=== PATIENT | female | born 1990 | race Caucasian/White ===

== ENCOUNTER → 2024-01-30 | Outpatient (CLI) | payer OTHER, SELFPAY ==
[2024-02-03 13:08] LABS: HPV APTIMA, High Risk Negative (Negative)
== END | disposition home or self-care (01) ==
PROVIDERS: PCP Family Medicine; Referring Provider Obstetrics & Gynecology; Visit Provider Obstetrics & Gynecology
DX: Z12.4 Encounter for screening for malignant neoplasm of cervix (principal)
CPT/HCPCS: 87624; 88175; G0145

== ENCOUNTER → 2025-05-17 | Outpatient (CLI) | payer OTHER, SELFPAY ==
--- OUTSIDE RECORDS SUMMARY | 2025-05-17 12:23 | XMS RPT_ITS | CCD ---
Author Organization [facility] Care Team Providers Care Slp Name Role Phone MATIASRAKESH KEYES Attending Unavailable ABIMBOLA HOUSE Primary Care Unavailable Harsh LUIS, Abimbola Aly Primary Care Provider Abimbola House MD Primary Care Provider Hollie Priest DO Primary Care Provider Abimbola House MD Primary Care Provider HOLLIE PRIEST Attending Unavailable HOLLIE PRIEST Primary Care Unavailable Harsh LUIS, Dr. Daily Primary Care Provider Dr. Abimbola House MD Referring Provider Dr. Annalisa Muhammad DO Attending Provider Annalisa Muhammad Attending UnavailAbimbola Sue Referring Unavailable Abimbola House Primary Care Unavailable Allergies Allergy Classification Reported Allergen(s) Allergy Type Date of Onset Reaction(s) Facility (4 sources) Amoxicillin-Pot Clavulanate Drug Allergy 02-26-2013 [facility] (1 source) Amoxicillin Drug Allergy 02-01-2025 unknown [facility] (1 source) Clavulanate Drug Allergy 02-01-2025 unknown [facility] (1 source) Amoxicillin Drug Allergy 02-01-2025 [facility] Repository (1 source) Clavulanate Drug Allergy 02-01-2025 [facility] Repository Medications Current Medications Medication Drug Class(es) Dates Sig (Normalized) Sig (Original) docosahexaenoic acid 200 mg oral capsule (1 source) Start: 02-01-2025 Docosahexaenoic Acid ( Dha) 200 mg capsule Active mg PO February 01, 2025 12:00am valACYclovir 1000 mg oral tablet (7 sources) Herpesvirus Nucleoside Analog DNA Polymerase Inhibitor, Herpes Simplex Virus Nucleoside Analog DNA Polymerase Inhibitor, Herpes Zoster Virus Nucleoside Analog DNA Polymerase Inhibitor Start: 01-30-2024 Valacyclovir 1 gram tablet Active 1000 mg PO DAILY as needed January 30, 2024 12:00am Start: 01-17-2024 End: 01-23-2025 valACYclovir (Valtrex) 1 g t ablet Indications: HSV-1 (herpes simplex virus 1) infection Take 1 tablet (1,000 mg) by mouth 2 times daily. 180 tablet 3 01/23/2025 Active Start: 12-05-2023 End: 01-17-2024 valACYclovir (Valtrex) 1 g t ablet Take 1,000 mg by mouth as needed. 12/05/2023 01/17/2024 Discontinued (Reorder) Start: 01-13-2023 End: 01-23-2023 valACYclovir (Valtrex) 1 g t ablet Indications: HSV-1 (herpes simplex virus 1) infection Take 0.5 tablets (500 mg) by mouth in the morning and 0.5 tablets (500 mg) at noon and 0.5 tablets (500 mg) in the evening and 0.5 tablets (500 mg) before bedtime. Do all this for 10 days. 20 tablet 10 01/13/2023 01/23/2023 Active Start: 01-11-2022 End: 01-13-2023 valACYclovir (Valtrex) 1 g t ablet Take 500 mg by mouth. 0 01/11/2022 01/13/2023 Discontinued (Reorder) vitamin b6 100 mg oral tablet (1 source) Start: 02-01-2025 take 1 tablet by mouth once daily Pyridoxine (Vitamin B6) 100 mg tablet Active 100 mg PO daily February 01, 2025 12:00am Problems Active Problems Problem Classification Problem Date Documented Da te Episodic/Chronic Diabetes mellitus without complication (1 source) Hyperglycemia; Translations: [Impaired fasting glucose] 01-15-2025 Episodic Disorders of lipid metabolism (1 source) Hyperlipidemia; Translations: [Hyperlipidemia, unspecified] 01-15-2025 Chronic Immunizations and screening for infectious disease (2 sources) Viral screening status; Translations: [Encounter for screening for other viral diseases] 01-15-2025 Episodic Syncope (1 source) Vasovagal syncope; Translations: [Syncope and collapse] 01-30-2024 Episodic Viral infection (10 sources) Herpes simplex type 1 infection; Translations: [Herpesviral infection, unspecified] Onset: 04-28-2018 01-13-2023 Episodic Past or Other Problems Problem Classification Problem Date Documented Date Episodic/Chronic Abdominal hernia (4 sources) Hiatal hernia; Translations: [Diaphragmatic hernia without obstruction or gangrene] Onset: 08-09-2018 03-20-2022 Episodic Contraceptive and procreative management (4 sources) Oral contraception; Translations: [Encounter for surveillance of contraceptive pills] Onset: 01-11-2022 Resolved: 01-13-2023 01-13-2023 Episodic Results Test Name Value Interpretation Reference Range Facility Superintendent Police Office Visit Reporton 02-01-2025 Superintendent Police Office Visit Report [facility] [address], [address] [place] [address] OFFICE VISIT Date of Service: 02/01/25 MR#: [id number] Acct: [id number] Name: ARPITA ULLOA ANN Rep #: [id number] : 1990 Provider: Dr. 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 Is patient in pain?: No Allergies amoxicillin (From Augmentin) Allergy (Mild, Verified 02/01/25 15:37) unknown clavulanic acid (From Augmentin) Allergy (Mild, Verified 02/01/25 15:37) unknown Medications ???Medication ???Instructions ???Recorded ???Confirmed ???Type valacyclovir 1 gram tablet 1,000 mg PO DAILY PRN 01/30/24 History docosahexaenoic acid 200 mg mg PO 02/01/25 02/01/25 History capsule ( DHA) pyridoxine (vitamin B6) 100 mg 100 mg PO QDAY 02/01/25 02/01/25 H istory tablet Post menopausal: No Patient : No : No PFSH Medical History Cold sore Surgical History S/P wisdom tooth extraction Family History Grandmother Diabetes Aunt No problems noted. Father No problems noted. Social History (Updated 02/01/25 @ 15:46 by Karen Frazier) Smoking Status: Never smoker alcohol intake: current details: occasionally substance use type: does not use caffeine: Yes what type of physical activity do you participate in: walking frequency: daily duration: 30-45 minutes/day seatbelt use: always do you feel safe at home: Yes additional social history: -Diego History 0 Elective abortions Hx Para Spontaneous abortions Hx # Term Pregnancies Ectopic pregnancies Hx # Pregnancies Multiple births # of living children HPI Encounter for routine gynecological examination Details: ARPITA ULLOA is a 34 year old who presents for annual exam. wants to start trying to conceive. is already taking PNV. Last PAP: 01/30/24 History of abnormal PAP:no Last mammogram: n/a History of abnormal mammogram:no Colon cancer screening: n/a Other preventative health care screenings: followed by pcp Female Reproductive History Cycle Length: 21-35 Bleeding Duration: 7 Questions: metrorrhagia: No, sexually active: Yes, dyspareunia: No and PCB: No Menopausal Symptoms: No hot flashes, No night sweats, No weight change, No mood changes, No difficulty concentrating, No sleep problems and No change in libido ROS Const Constitutional: Reports as per HPI; Denies fatigue, increased appetite, poor appetite, night sweats, weight gain or weight loss Cardio Card: Denies chest pain Resp Resp: Denies cough or dyspnea GI GI: Reports as per HPI; Denies abdominal pain, bloating, constipation, nausea or vomiting : Reports as per HPI and other; Denies difficulty voiding, dysuria, hematuria, hot flashes, nipple discharge, pelvic pain, prolapse symptoms, urinary frequency, urinary incontinence, urinary urgency, vaginal discharge, vaginal dryness, vaginal odor or vaginal pruritus Skin Skin/Breast: Denies changing lesions, breast mass, breast pain, breast skin changes or nipple discharge Psych Psych: Denies anxiety, change in libido, depression or difficulty concentrating Exam Const General: cooperative, healthy appearing, comfortable, no acute distress, well developed and well groomed [facility] Head: normal to inspection and normocephalic Ears: hearing grossly normal bilaterally and external ears normal Nose: external nose normal Face and sinus: normal facial exam Neck Neck: normal visual inspection, full ROM and no lymphadenopathy Thyroid: thyroid normal Chest Chest palpation inspection: normal inspection of the chest Breast inspection: normal inspection of the breasts and normal inspection of the axillae Breast palpation: normal palpation of the breasts, normal palpation of the axillae and no axillary lymphadenopathy Resp Effort Inspection: normal respiratory effort GI Inspection: normal to inspection and non-distended Palpation: soft, no hepatosplenomegaly and no guarding General: bladder normal to palpation External Female Exam: normal external appearance, normal appearance of the urethra and no lesions Urethra: normal appearance of the urethra and normal palpation Speculum Exam - Vagina: normal appearance of the vagina and normal vaginal discharge Speculum Exam - Cervix: normal appearance of the cervix, no cervical discharge, no lesions and nontender [place] (more content not included)... Normal [facility] Office Visiton 01-23-2025 Follow-up visit [id number] Arpita Ulloa 1990 F Date Provider Department Center 01/23/2025 [id number] PRIEST [facility] Family History Problem Relation Age of Onset No Known Problems Paternal Grandmother Other Father Comments: Colon issues Asthma Father No Known Problems Maternal Grandmother No Known Problems Maternal Grandfather No Known Problems Brother Diabetes Mother Arthritis Mother No Known Problems Paternal Grandfather Family Status - Relation Status Age at Paternal Grandmother Alive Father Alive Maternal Grandmother Maternal Grandfather Brother Alive Mother Alive Paternal Grandfather Other Level of Service:03483 RI PERIODIC PREVENTIVE MED EST PATIENT 18-39 YRS Reason for Visit and Comments: New Patient [542] - New to provider Annual Exam [83] - Physical Normal [facility] Progress Noteon 01-23-2025 Progress Note Chronic. stable. Con tinue valtrex Orders: valACYclovir (Valtrex) 1 g tablet; Take 1 tablet (1,000 mg) by mouth 2 times daily. Normal [facility] Progress Note The patient, Arpita Lind aas is a 34 y.o. female identity was verified by name and date of . Injection of Tdap was administered per Nino Priest's Orders: Injection site: Left Deltoid The patient tolerated the injection well and without incident. The patient was discharged home with education. (After Visit Summary) Normal [facility] Progress Note [facility] [address] [facility] [id number] Visit Type: Physical PCP: Hollie Priest, Reason for Visit: New Patient (New to provider) and Annual Exam (Physical) ASSESSMENT AND PLAN Assessment & Plan Annual physical exam Reviewed labs - cbc, cmp, lipid, A1c - wnl. Advised updating her Tdap in preparation for having a child. 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 Continue valtrex Orders: valACYclovir (Valtrex) 1 g tablet; Take 1 tablet (1,000 mg) by mouth 2 times daily. Follow up in about 1 year (around 01/23/2026) for Annual. There are no Patient Instructions on file for this visit. SUBJECTIVE HPI Arpita Ulloa presents for an annual exam. 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 Pap last year (2023). Trying to conceive. Review of Systems Pertinent ROS noted in the HPI and all other systems are negative. Allergies[1] Current Medications[2] Medical History[3] Social History[4] Surgical History[5] Family History[6] OBJECTIVE BP 113/70 (BP Location: Right arm, Patient Position: Sitting, BP Cuff Size: Adult) Pulse 91 Temp 36.7 ?C (98 ?F) (Temporal) Ht 5' 6.5 (1.689 m) Wt 130 lb (59 kg) LMP 01/20/2025 (Exact Date) Comment: Regular SpO2 100% BMI 20.67 kg/m? Physical Exam Constitutional: General: She is not in acute distress. Appearance: Normal appearance. HENT: Head: Normocephalic and atraumatic. Right Ear: Tympanic membrane, ear canal and external ear normal. Left Ear: Tympanic membrane, ear canal and external ear normal. Mouth/Throat: Mouth: Mucous membranes are moist. Pharynx: Oropharynx is clear. No posterior oropharyngeal erythema. Eyes: General: No scleral icterus. Extraocular Movements: Extraocular movements intact. Conjunctiva/sclera: Conjunctivae normal. Pupils: Pupils are equal, round, and reactive to light. Neck: Thyroid: No thyroid mass or thyromegaly. Cardiovascular: Rate and Rhythm: Normal rate and regular rhythm. Heart sounds: No murmur heard. Pulmonary: Effort: Pulmonary effort is normal. No respiratory distress. Breath sounds: Normal breath sounds. No wheezing, rhonchi or rales. Abdominal: General: Abdomen is flat. Bowel sounds are normal. There is no distension. Palpations: Abdomen is soft. There is no hepatomegaly, splenomegaly or mass. Tenderness: There is no abdominal tenderness. There is no guarding. Musculoskeletal: Cervical back: Normal range of motion. No tenderness. Lymphadenopathy: Cervical: No cervical adenopathy. Neurological: Mental Status: She is alert. Psychiatric: Attention and Perception: Attention normal. Mood and Affect: Mood normal. Behavior: Behavior normal. Health Maintenance Health Maintenance Due Topic Date Due DTaP/Tdap/Td Vaccines (7 - Td or Tdap) 11/14/2019 COVID-19 Vaccine (2023- season) 2024 Immunization History Administered Date(s) Administered DTP 1990, 02/11/1993, 04/15/1993 DTaP, Unspecified 06/15/1994, 09/17/1997 HPV, Quadrivalent 01/23/2010, 04/14/2010, 03/12/2011 Hep A, ped/adol, 2 dose 11/13/2009, 06/02/2010 Hep B, Adolescent or Pediatric 11/27/1996, 02/26/1997, 09/17/1997 HiB, unspecified 1992, 02/11/1993, 04/15/1993, 06/15/1994 Influenza, seasonal, injectable 03/08/2014 MMR 06/15/1994, 09/17/1997 Meningococcal MCV4P 11/13/2009 Moderna SARS-CoV-2 Vaccination 08/27/2020, 09/24/2020, 06/16/2021 OPV 1990, 02/11/1993, 06/15/1994 Polio, Unspecified 09/17/1997 Tdap 11/13/2009 Varicella 09/17/1997, 11/13/2009 Medications Discontinued During This Encounter Medication Reason valACYclovir (Valtrex) 1 g tablet Reorder Hollie WinterDO brandi 01/23/2025 8:59 AM There are no Patient Instructions on file for this visit. [1] Allergies Allergen Reactions Amoxicillin-Pot Clavulanate Diarrhea [2] Current Outpatient Medications: valACYclovir (Valtrex) 1 g tablet, Take 1 tablet (1,000 mg) by mouth 2 times daily., Disp: 180 tablet, Rfl: 3 [3] History reviewed. No pertinent past medical history. [4] Social History Socioeconomic History Marital status: Tobacco Use Smoking status: Never Passive exposure: Never Smokeless tobacco: Never Vaping Use Vaping status: Never Used Substance and Sexual Activity Alcohol use: Yes Drug use: Never Sexual activity: Yes Partners: Male control/protection: Condom Male Comment: Previously on Apri Control. Ended July 2022 Social Drivers of Health Financial Resource Strain: Low Risk (01/23/2025) Overall Financial Resource Strain (CARDIA) Difficulty of Paying Living Expenses: Not hard at all Food Insecurity: No Food Insecurity (01/23/2025) Hunger Vital Sign Worried About Running Out of Food in the Last Year: Never true Ran Out of Food in the Last Year: [place] (more content not included)... Normal [facility] CBC panel Auto (Bld)on 01-17 Erythrocyte distribution width (RBC) [Ratio] 12.1 % 11.0 - 15.0 % [facility] Hematocrit (Bld) [Volume fraction] 41.6 % 35.0 - 45.0 % [facility] Hemoglobin (Bld) [Mass/Vol] 13.8 g/dL 11.7 - 15.5 g/dL [facility] MCH (RBC) [Entitic mass] 30.5 pg 27.0 - 33.0 pg [facility] MCHC (RBC) [Mass/Vol] 33.2 g/dL 32.0 - 36.0 g/dL [facility] Comment on above: For adults, a slight decrease in the calculated MCHC value (in the range of 30 to 32 g/dL) is most likely not clinically significant; however, it should be interpreted with caution in correlation with other red cell parameters and the patient's clinical condition. MCV (RBC) [Entitic vol] 92 fL 80.0 - 100.0 fL [facility] Platelet mean volume (Bld) [Entitic vol] 10.1 fL 7.5 - 12.5 fL [facility] Platelets (Bld) [#/Vol] 212 10*3/uL [facility] RBC (Bld) [#/Vol] 4.52 10*6/uL [facility] WBC (Bld) [#/Vol] 5.2 10*3/uL [facility] Comprehensive metabolic 1998 panelon 01-17-2025 Albumin [Mass/Vol] 4.6 g/dL 3.6 - 5.1 g/dL [facility] Albumin/Globulin [Mass ratio] 2 {ratio} [facility] ALP [Catalytic activity/Vol] 32 U/L 31 - 125 U/L [facility] ALT [Catalytic activity/Vol] 12 U/L 6 - 29 U/L [facility] AST [Catalytic activity/Vol] 13 U/L 10 - 30 U/L [facility] Bilirubin [Mass/Vol] 0.8 mg/dL 0.2 - 1.2 mg/dL [facility] Calcium [Mass/Vol] 9.1 mg/dL 8.6 - 10. 2 mg/dL [facility] Chloride [Moles/Vol] 105 mmol/L 98 - 110 mmol/L [facility] CO2 [Moles/Vol] 26 mmol/L 20 - 32 mmol/L [facility] Creatinine [Mass/Vol] 0.69 mg/dL 0.50 - 0.97 mg/dL [facility] GFR/1.73 sq M.predicted among non-blacks MDRD (S/P/Bld) [Vol rate/Area] 118 mL/min/{1.73_m2} > OR = 60 mL/min/1.73m2 [facility] Globulin (S) [Mass/Vol] 2.3 g/dL [facility] Glucose [Mass/Vol] 94 mg/dL 65 - 99 mg/dL [facility] Comment on above: Fasting reference interval Potassium [Moles/Vol] 3.9 mmol/L 3.5 - 5.3 mmol/L [facility] Protein [Mass/Vol] 6.9 g/dL 6.1 - 8.1 g/dL [facility] Sodium [Moles/Vol] 138 mmol/L 135 - 146 mmol/L [facility] Urea nitrogen [Mass/Vol] 11 mg/dL 7 - 25 mg/dL [facility] Urea nitrogen/Creatinin e [Mass ratio] SEE NOTE: [facility] Comment on above: Not Reported: BUN an d Creatinine are within reference range. HIV-1 and HIV-2 Antigen-Anti body Screenon 01-17-2025 HIV 1+2 Ab+HIV1 p24 Ag IA Ql [facility] Comment on above: HIV Negative HIV-1 antigen and HIV-1/HIV-2 antibodies were not detected. There is no laboratory evidence of HIV infection. HIV 1+2 Ab+HIV1 p24 Ag IA Ql Non-Reactive NON-REACTIVE [facility] Hemoglobin A1con 01-17-2025 HbA1c (Bld) [Mass fraction] 5.2 % NINF - 5.7 % [facility] Comment on above: For the purpose of s creening for the presence of diabetes: <5.7% Consistent with the absence of diabetes 5.7-6.4% Consistent with increased risk for diabetes (prediabetes) > or =6.5% Consistent with diabetes This assay result is consistent with a decreased risk of diabetes. Currently, no consensus exists regarding use of hemoglobin A1c for diagnosis of diabetes in children. According to [place] Diabetes Association (ADA) guidelines, hemoglobin A1c <7.0% represents optimal control in non- diabetic patients. Different metrics may apply to specific patient populations. Standards of Medical Care in Diabetes(ADA). Hepatitis C antibodyon 01-17 HCV Ab IA Ql Non-Reactive NON-REACTIVE [facility] Comment on above: HCV antibody was non-reactive. There is no laboratory evidence of HCV infection. In most cases, no further action is required. However, if recent HCV exposure is suspected, a test for HCV RNA (test code 22821) is suggested. For additional information please refer to http://education.[employer]/faq/QIY42x1 (This link is being provided for informational/ educational purposes only.) Lipid 1996 panelon 5 Cholesterol [Mass/Vol] 163 mg/dL NINF - 200 mg/dL [facility] Cholesterol in HDL [Mass/Vol] 58 mg/dL > OR = 50 [facility] Cholesterol in LDL [Mass/Vol] 90 mg/dL mg/dL (calc) [facility] Comment on above: Reference range: <10 0 Desirable range <100 mg/dL for primary prevention; <70 mg/dL for patients with CHD or diabetic patients with > or = 2 CHD risk factors. LDL-C is now calculated using the Ruth calculation, which is a validated novel method providing better accuracy than the Friedewald equation in the estimation of LDL-C. Rory CAMPOS et al. ELIUD. 2013;310(19): 5671-7005 (http://education.[employer]/faq/FSW582) Cholesterol non HDL [Mass/Vol] 105 mg/dL [facility] Comment on above: For patients with di abetes plus 1 major ASCVD risk factor, treating to a non-HDL-C goal of <100 mg/dL (LDL-C of <70 mg/dL) is considered a therapeutic option. Cholesterol.total/ Cholesterol in HDL [Mass ratio] 2.8 {ratio} [facility] Triglyceride [Mass/Vol] 67 mg/dL [facility] - 150 mg/dL [facility] No Panel Informationon 01-17 [facility] 36on 01-15-2025 36 [facility] Labs ordered. Normal [facility] 36 Name of caller: Gaby pearl Contact phone number: [phone] Relationship to Patient: patient Provider: Zayda Practice: [facility] Chief Complaint/Reason for Call: Patient wants to know if you can order her blood work so she can have it done prior to her physical and it can be discussed at the visit? Please advise Best time of day caller can be reached: any Patient advised that office/PCP has 24-48 business hours to return their call: No [employer] [facility] CNOVon 12-06-2017 CNOV Office Visit (WALKBR) ARPITA CURRY ([id number]) 1990 FDate Time Provider Department12/06/17 6:10 AM DANN CAMPUZANO (ALISSA) LEYLA During your visit today, we recorded the following information about you: Temperature Pulse Respiration Blood pressure 99.7 degrees 133/minute 16/minute 132/89 Weight Last Period 56.2 kg 12/03/17Ronanjaja Babs Saleem 12/06/2017 6:15 AM AddendumIf your symptoms continue or are worsening, please contact your Primary CareProvider for a follow up appointment.ASSESSMENT/GISSELLE N:1. Sore throat - ICD9: 462, ICD10: J02.9- suspect strep- Rapid Strep positive in the office today- The patient should follow up in 3-5 days if symptoms persist or worsen- RAPID STREP TEST B/O- AMOXICILLIN 875 MG TABLET - get a new toothbrush and start using It on Forest Campuzano APRN.CNP 12/06/2017 6:36 AM SignedSubjectiveHPIHPI Arpita Curry is a 27 year old female who presents today for CC of sorethroat This started 2 days ago, she is also having headache, body aches, hotand cold spells she has tried benadryl and advil, salt water gargles, andcider vinegarThere is no problem list on file for this patient.BP 132/89 Pulse (!) 133 Temp 37.6 ?C (99.7 ?F) (Tympanic) Resp 16 Wt 56.2 kg (124 lb) LMP 12/03/2017 (Exact Date) SpO2 97%ALLERGIESAllergen Reactions- Amoxicillin-Pot Cla* DiarrheaCurrent Outpatient Prescriptions:Desogestrel- Ethinyl Estradiol (APRI) 0.15-0.03 mg per tablet Take by mouth.Disp: Rfl:acyclovir (ZOVIRAX) 5 % ointment Apply topically every 3 hours. X 7d prn Disp:Rfl:calcium carbonate ([id number]-482) 500 mg calcium (1,250 mg) tablet Take 500 mgby mouth. Disp: Rfl:No current facility-administered medications for this visit.Review of SystemsConstitutional: Positive for chills. Negative for diaphoresis, fever andmalaise/fatigue.HENT: Positive for sore throat. Negative for congestion and ear pain.Respiratory: Negative for cough and wheezing.Gastrointestinal: Negative for abdominal pain, diarrhea, nausea and vomiting.Musculoskeletal: Positive for myalgias. Negative for joint pain.Skin: Negative for rash.Neurological: Positive for headaches. Negative for weakness.ObjectivePhysical ExamConstitutional: She is oriented to person, place, and time and well-developed,well-nouris hed, and in no distress.HENT:Head: Normocephalic and atraumatic.Right Ear: Tympanic membrane and ear canal normal.Left Ear: Tympanic membrane and ear canal normal.Nose: Nose normal. Right sinus exhibits no maxillary sinus tenderness and nofrontal sinus tenderness. Left sinus exhibits no maxillary sinus tenderness andno frontal sinus tenderness.Mouth/Throat: Uvula is midline and mucous membranes are normal. Normaldentition. Posterior oropharyngeal edema and posterior oropharyngeal erythemapresent. No oropharyngeal exudate or tonsillar abscesses.Eyes: Conjunctivae and EOM are normal. Pupils are equal, round, and reactive tolight.Neck: Normal range of motion. Neck supple.Cardiovascular: Normal rate, regular rhythm and normal heart sounds.Pulmonary/Chest: Effort normal and breath sounds normal. No respiratorydistress.Lympha denopathy: Head (right side): Tonsillar adenopathy present. No submental, nosubmandibular, no preauricular, no posterior auricular and no occipitaladenopathy present. Head (left side): Tonsillar adenopathy present. No submental, nosubmandibular, no preauricular, no posterior auricular and no occipitaladenopathy present. She has no cervical adenopathy.Neurological: She is alert and oriented to person, place, and time. Gaitnormal.Skin: Skin is warm and dry.Psychiatric: Affect normal.Nursing note and vitals reviewed.ASSESSMENT/PLAN:1 . Sore throat - ICD9: 462, ICD10: J02.9- suspect strep- Rapid Strep positive in the office today- The patient should follow up in 3-5 days if symptoms persist or worsen- RAPID STREP TEST B/O- AMOXICILLIN 875 MG TABLET - get a new toothbrush and start using It on Dann Campuzano APRN.CNPReferring Provider: SELF [200]Allergies As of Date: 12/06/2017 Noted Allergy ReactionAMOXICILLIN-POT CLAVULANATE 02/26/2013 6 - DiarrheaDate Reviewed: 12/06/2017Reviewed by: Dann Bertrand (Alissa) Tatianna - Fully AssessedReason for Visit: Sore Throat [200] Cmt: x 2 DAYSReason For Visit History RecordedPrimary Visit Diagnosis:Sore throat [J02.9]Order(s):RAPID STREP TEST B/O [[id number]] Order #: [id number] amoxicillin (AMOXIL) 875 mg tabletTake 1 tablet by mouth every 12 hours for 10 days.Disp: 20 tabletRfl: 0Prescriptions as of 12/06/2017 Sig: DESOGESTREL 0.15 MG-ETHINYL E* Take by mouth. ACYCLOVIR 5 % TOPICAL OINTMENT Apply topically every 3 hours* CALCIUM CARBONATE 500 MG CALC* Take 500 mg by mouth. AMOXICILLIN 875 MG TABLET Take 1 tablet by mouth every *Medication notes this encounter ACYCLOVIR 5 % TOPICAL OINTMENT >> Jyothi Brice Ma 12/06/2017 6:17 AM >> JYOTHI BRICE MA Dec 06, 2017 6:17 AM prnProblem List As Of Date: 12/06/2017(None) Other instructions from your clinician: If your symptoms continue or are worsening, please contact your Primary Care Provider for a follow up appointment. ASSESSMENT/PLAN: 1. Sore throat - ICD9: 462, ICD10: J02.9 - suspect strep - Rapid Strep positive in the office today - The patient should follow up in 3-5 days if symptoms persist or worsen - RAPID STREP TEST B/O - AMOXICILLIN 875 MG TABLET - get a new toothbrush and start using It on Thank youPrescriptions ordered this encounter Disp Refills Start End AMOXICILLIN 875 MG TABLET 20 t* 0 12/06/2017 12/16/2017 Route: ORAL Sig: Take 1 tablet by mouth every 12 hours for 10 days.Letter Alka Campuzano APRN.CNP Walk In [address] [address]Wmab: [phone] Jarai[address] [facility] [address]Ht Whom it May Concern:This is to certify that Arpita Curry was seen at our office for medicalcare. Arpita may return to work on 12/08/17.If you have any questions please feel free to call.Sincerely:Dann Campuzano APRN.CNPEncounter Number: [id number] Status:Closed by DANN CAMPUZANO on 12/06/17 Normal [facility] PROGRESSon 12-06-2017 PROGRESS HNO ID: [id number] thor: Dann Bertrand (Radiology Scheduler) TatiannaService: (none)Author Type: Nurse PractitionerType: Progress NotesFiled: 12/06/2017 6:36 AMNote Text:SubjectiveHPIHPI Arpita Curry is a 27 year old female who presents today for CC ofsore throat This started 2 days ago, she is also having headache, bodyaches, hot and cold spells she has tried benadryl and advil, salt watergargles, and cider vinegarThere is no problem list on file for this patient.BP 132/89 Pulse (!) 133 Temp 37.6 ?C (99.7 ?F) (Tympanic) Resp 16 Wt 56.2 kg (124 lb) LMP 12/03/2017 (Exact Date) SpO2 97%ALLERGIESAllergen Reactions- Amoxicillin-Pot Cla* DiarrheaCurrent Outpatient Prescriptions:Desogestrel- Ethinyl Estradiol (APRI) 0.15-0.03 mg per tablet Take bymouth. Disp: Rfl:acyclovir (ZOVIRAX) 5 % ointment Apply topically every 3 hours. X 7d prnDisp: Rfl:calcium carbonate ([id number]) 500 mg calcium (1,250 mg) tablet Take 500mg by mouth. Disp: Rfl:No current facility-administered medications for this visit.Review of SystemsConstitutional: Positive for chills. Negative for diaphoresis, fever andmalaise/fatigue.HENT: Positive for sore throat. Negative for congestion and ear pain.Respiratory: Negative for cough and wheezing.Gastrointestinal: Negative for abdominal pain, diarrhea, nausea andvomiting.Musculoskeleta l: Positive for myalgias. Negative for joint pain.Skin: Negative for rash.Neurological: Positive for headaches. Negative for weakness.ObjectivePhysical ExamConstitutional: She is oriented to person, place, and time andwell-developed, well-nourished, and in no distress.HENT:Head: Normocephalic and atraumatic.Right Ear: Tympanic membrane and ear canal normal.Left Ear: Tympanic membrane and ear canal normal.Nose: Nose normal. Right sinus exhibits no maxillary sinus tenderness andno frontal sinus tenderness. Left sinus exhibits no maxillary sinustenderness and no frontal sinus tenderness.Mouth/Throat: Uvula is midline and mucous membranes are normal. Normaldentition. Posterior oropharyngeal edema and posterior oropharyngealerythema present. No oropharyngeal exudate or tonsillar abscesses.Eyes: Conjunctivae and EOM are normal. Pupils are equal, round, andreactive to light.Neck: Normal range of motion. Neck supple.Cardiovascular: Normal rate, regular rhythm and normal heart sounds.Pulmonary/Chest: Effort normal and breath sounds normal. No respiratorydistress.Lympha denopathy: Head (right side): Tonsillar adenopathy present. No submental, nosubmandibular, no preauricular, no posterior auricular and no occipitaladenopathy present. Head (left side): Tonsillar adenopathy present. No submental, nosubmandibular, no preauricular, no posterior auricular and no occipitaladenopathy present. She has no cervical adenopathy.Neurological: She is alert and oriented to person, place, and time. Gaitnormal.Skin: Skin is warm and dry.Psychiatric: Affect normal.Nursing note and vitals reviewed.ASSESSMENT/PLAN:1 . Sore throat - ICD9: 462, ICD10: J02.9- suspect strep- Rapid Strep positive in the office today- The patient should follow up in 3-5 days if symptoms persist or worsen- RAPID STREP TEST B/O- AMOXICILLIN 875 MG TABLET - get a new toothbrush and start using It on Dann Campuzano APRN.WELCOME HOSTESS Normal [facility] Vital Signs Date Time Vital Sign Value Performing Clinician Facility 02-01-2025 15:41-0400 Body height 165.[address] Abimbola House MD Work Phone: [facility] 02-01-2025 15:38-0400 Body mass index (BMI) [Ratio] 21.5 kg/m2 Dr. Abimbola House MD Work Phone: [facility] 02-01-2025 15:38-0400 Body weight 58.[address] Abimbola House MD Work Phone: [facility] 02-01-2025 15:38-0400 Diastolic blood pressure 89 mm[Hg] Dr. Abimbola House MD Work Phone: [facility] 02-01-2025 15:38-0400 Systolic blood pressure 131 mm[Hg] Dr. Abimbola House MD Work Phone: [facility] 01-23-2025 08:34-0400 Body temperature 98.01 [degF] Hollie Zayda DO Work Phone: [facility] 01-23-2025 08:34-0400 Diastolic blood pressure 70 mm[Hg] Hollie Zayda DO Work Phone: [facility] 01-23-2025 08:34-0400 Heart rate 91 /min Hollie Zayda DO Work Phone: [facility] 01-23-2025 08:34-0400 SaO2% (BldA) [Mass fraction] 100 % Hollie Zayda DO Work Phone: [facility] 01-23-2025 08:34-0400 Systolic blood pressure 113 mm[Hg] Hollie Zayda DO Work Phone: [facility] 01-23-2025 08:27-0400 Body height 168.9 cm Hollie Zayda DO Work Phone: [facility] 01-23-2025 08:27-0400 Body mass index (BMI) [Ratio] 20.67 kg/m2 Hollie Zayda DO Work Phone: [facility] 01-23-2025 08:27-0400 Body weight 58.97 kg Hollie Zayda DO Work Phone: [facility] 01-17-2024 07:41-0400 Body height 167.6 cm Abimbola House MD Work Phone: [facility] 01-17-2024 07:41-0400 Body mass index (BMI) [Ratio] 21.14 kg/m2 Abimbola House MD Work Phone: [facility] 01-17-2024 07:41-0400 Body weight 59.42 kg Abimbola House MD Work Phone: [facility] 01-17-2024 07:41-0400 Diastolic blood pressure 78 mm[Hg] Abimbola House MD Work Phone: [facility] 01-17-2024 07:41-0400 Heart rate 88 /min Abimbola House MD Work Phone: [facility] 01-17-2024 07:41-0400 SaO2% (BldA) [Mass fraction] 99 % Abimbola House MD Work Phone: [facility] 01-17-2024 07:41-0400 Systolic blood pressure 115 mm[Hg] Abimbola House MD Work Phone: [facility] 01-13-2023 07:36-0400 Body height 168.9 cm Abimbola House MD Work Phone: [facility] 01-13-2023 07:36-0400 Body mass index (BMI) [Ratio] 20.6 kg/m2 Abimbola House MD Work Phone: [facility] 01-13-2023 07:36-0400 Body temperature 98.4 [degF] Abimbola House MD Work Phone: [facility] 01-13-2023 07:36-0400 Body weight 58.79 kg Abimbola House MD Work Phone: [facility] 01-13-2023 07:36-0400 Diastolic blood pressure 77 mm[Hg] Abimbola House MD Work Phone: [facility] 01-13-2023 07:36-0400 Heart rate 77 /min Abimbola House MD Work Phone: [facility] 01-13-2023 07:36-0400 SaO2% (BldA) [Mass fraction] 99 % Abimbola House MD Work Phone: [facility] 01-13-2023 07:36-0400 Systolic blood pressure 111 mm[Hg] Abimbola House MD Work Phone: [facility] Encounters Encounter Date Encounter Type Care Provider Facility Start: 02-01-2025 Encounter for gynecological examination (general) (routine) without abnormal findings Annalisa [facility] Start: 02-01-2025 End: 02-01-[address] Annalisa Muhammad [facility] Work Phone: Start: 02-01-2025 End: 02-01-[address] Annalisa Muhammad DO [facility] Start: 02-01-2025 End: 02-01-[address] Abimbola House MD Work Phone: [facility] Start: 01-23-2025 End: 01-23-2025 Patient encounter procedure Hollie Priest DO Work Phone: [facility] Work Phone: Start: 01-23-2025 End: 01-23-2025 Periodic preventive med est patient 18-39 yrs Hollie Priest DO Work Phone: [facility] Comment on above: Annual physical exam (Primary Dx); HSV-1 (herpes simplex virus 1) infection Start: 01-23-2025 End: 01-23-2025 ambulatory HOLLIE PRIEST [facility] Start: 01-23-2025 End: 01-23-2025 Encounter for general adult medical examination without abnormal findings HOLLIE ZAYDA [facility] Start: 01-15-2025 End: 01-23-2025 Patient encounter procedure Hollie Priest DO Work Phone: [facility] Work Phone: Start: 01-15-2025 End: 01-23-2025 Telephone encounter Hollie Zayda DO Work Phone: [facility] Comment on above: Labs Only Start: 01-17-2024 End: 01-17-2024 Patient encounter status [facility]imb[facility] House [facility] Work Phone: Start: 01-17-2024 End: 01-17-2024 Periodic preventive med est patient 18-39 yrs Abimbola House MD Work Phone: [facility] Comment on above: Routine adult health maintenance (Primary Dx); HSV-1 (herpes simplex virus 1) infection Start: 01-13-2023 End: 01-13-2023 Patient encounter status Abimbola House MD [facility] Work Phone: Start: 01-13-2023 End: 01-13-2023 Periodic preventive med est patient 18-39 yrs Abimbola House MD Work Phone: [facility] Comment on above: Routine adult health maintenance (Primary Dx); HSV-1 (herpes simplex virus 1) infection Start: 10-02-2018 End: 10-03-2018 Patient encounter procedure RAKESH HASSAN Facility:[facility] Start: 09-04-2018 End: 09-05-2018 Patient encounter procedure RAKESH HASSAN Facility:[facility] Start: 12-06-2017 End: 12-08-2017 Ambulatory [facility] Procedures Date Procedure Procedure Detail Performing Clinician Start: 01-23-2025 Adult depression scr eening assessment Hollie Priest DO Work Phone: Start: 01-16-2025 Comprehensive metabo lic panel Hollie Priest DO Work Phone: Start: 01-16-2025 Lipid panel Hollie thomas DO Work Phone: Start: 01-30-2024 Microscopic observat ion [Identifier] in Cervix by Cyto stain Hollie Priest DO Work Phone: Start: 01-17-2024 Adult depression scr eening assessment Abimbola House MD Work Phone: Start: 01-13-2023 Adult depression scr eening assessment Abimbola House MD Work Phone: Start: 01-05-2021 Microscopic observat ion [Identifier] in Cervix by Cyto stain Abimbola House MD Work Phone: Plan of Treatment Date Care Activity Detail Author Start: 10-15-2067 RSV Immunization for Adults (1 - 1-dose 75+ series) RSV Immunization for Adults (1 - 1-dose 75+ series) [facility] Start: 2052 RSV Immunization age d 60 or older (1 - 1-dose 60+ series) RSV Immunization aged 60 or older (1 - 1-dose 60+ series) [facility] Start: 2042 Zoster Vaccines (1 of 2) Zoster Vacc jesenia (1 of 2) [facility] Start: 01-23-2035 DTaP/Tdap/Td Vaccine s (8 - Td or Tdap) DTaP/Tdap/Td Vaccines (8 - Td or Tdap) [facility] Start: 01-29-2027 Screening for malign ant neoplasm of cervix [facility] Start: 02-03-2026 End: 02-03-2026 Patient encounter procedure 02/03/2026 9:40 AM EDT Office Visit [facility] [address] [place] [address] Hollie Priest DO [address] [place] [address] [facility] Start: 01-23-2026 Depression Screening Depression Scre ening [facility] Start: 01-16-2026 Diabetes mellitus screening Diabetes Screening [facility] Start: 02-04-2025 Influenza vaccination Influenza Vacc ine (#1) [facility] Start: 01-23-2025 End: 01-23-2025 Patient encounter procedure 01/23/2025 8:20 AM EDT Office Visit [facility] [address] [place] [place] [id number] Hollie Priest DO [address] [place], [place] [id number] [facility] Start: 01-16-2025 Depression Screening Depression Scre ening [facility] Start: 02-05-2024 COVID-19 Vaccine ( season) COVID-19 Vaccine () [facility] Start: 02-05-2024 Influenza vaccination Influenza Vacc ine (#1) [facility] Start: 01-17-2024 End: 01-17-2024 Patient encounter procedure 01/17/2024 7:40 AM EDT Office Visit [facility] [address] [place] [place] [phone] Abimbola House MD [facility] [place] [address] [facility] Start: 01-14-2024 Depression Screening Depression Scre ening [facility] Start: 01-06-2024 Screening for malign ant neoplasm of cervix [facility] Start: 02-04-2023 COVID-19 Vaccine ( season) COVID-19 Vaccine () [facility] Start: 02-04-2023 Influenza vaccination Influenza Vacc ine (#1) [facility] Start: 2022 Screening for malign ant neoplasm of cervix HPV/Cotest [facility] Start: 08-11-2021 COVID-19 Vaccine (4 - Booster for Moderna series) COVID-19 Vaccine (4 - Booster for Moderna series) [facility] Start: 11-14-2019 DTaP/Tdap/Td Vaccine s (7 - Td or Tdap) DTaP/Tdap/Td Vaccines (7 - Td or Tdap) [facility] Start: 2010 Diabetes mellitus screening Diabetes Screening [facility] Start: 2010 Hepatitis C screening Hepatitis C Sc reening [facility] Start: 1992 HIV screening HIV Screening [place] alex Immunizations Immunization Date Immunization Notes Care Provider Ermias velasquez 01-23-2025 tetanus toxoid, redu blessing diphtheria toxoid, and acellular pertussis vaccine, adsorbed Hollie Priest DO Work Phone: [facility] 09-24-2020 Moderna SARS-CoV-2 Vaccination Abimbola House MD Work Phone: [facility] 08-27-2020 Moderna SARS-CoV-2 Vaccination Abimbola House MD Work Phone: [facility] 03-08-2014 influenza, seasonal, injectable Abimbola House MD Work Phone: [facility] 03-08-2014 influenza virus vacc ine, unspecified formulation Abimbola House MD Work Phone: [facility] 03-12-2011 human papilloma viru s vaccine, quadrivalent Abimbola House MD Work Phone: [facility] 06-02-2010 hepatitis A vaccine, pediatric/adolescent dosage, 2 dose schedule Abimbola House MD Work Phone: [facility] 04-14-2010 human papilloma viru s vaccine, quadrivalent Abimbola House MD Work Phone: [facility] 01-23-2010 human papilloma viru s vaccine, quadrivalent Abimbola House MD Work Phone: [facility] 11-13-2009 hepatitis A vaccine, pediatric/adolescent dosage, 2 dose schedule Abimbola House MD Work Phone: [facility] 11-13-2009 meningococcal polysaccharide (groups A, C, Y and W-135) diphtheria toxoid conjugate vaccine (MCV4P) Abimbola House MD Work Phone: [facility] 11-13-2009 tetanus toxoid, redu blessing diphtheria toxoid, and acellular pertussis vaccine, adsorbed Abimbola House MD Work Phone: [facility] 11-13-2009 varicella virus vaccine Rainer House MD Work Phone: [facility] 09-17-1997 diphtheria, tetanus toxoids and acellular pertussis vaccine, unspecified formulation Abimbola House MD Work Phone: [facility] 09-17-1997 hepatitis B vaccine, pediatric or pediatric/adolescent dosage Abimbola House MD Work Phone: [facility] 09-17-1997 measles, mumps and r ubella virus vaccine Abimbola House MD Work Phone: [facility] 09-17-1997 poliovirus vaccine, unspecified formulation Abimbola House MD Work Phone: [facility] 09-17-1997 varicella virus vaccine Rainer House MD Work Phone: [facility] 02-26-1997 hepatitis B vaccine, pediatric or pediatric/adolescent dosage Abimbola House MD Work Phone: [facility] 11-27-1996 hepatitis B vaccine, pediatric or pediatric/adolescent dosage Abimbola House MD Work Phone: [facility] 06-15-1994 diphtheria, tetanus toxoids and acellular pertussis vaccine, unspecified formulation Abimbola House MD Work Phone: [facility] 06-15-1994 haemophilus influenz ae type b vaccine, conjugate unspecified formulation Abimbola House MD Work Phone: [facility] 06-15-1994 measles, mumps and r ubella virus vaccine Abimbola House MD Work Phone: [facility] 06-15-1994 trivalent poliovirus vaccine, live, oral Abimbola House MD Work Phone: [facility] 04-15-1993 diphtheria, tetanus toxoids and pertussis vaccine Abimbola House MD Work Phone: [facility] 04-15-1993 haemophilus influenz ae type b vaccine, conjugate unspecified formulation Abimbola House MD Work Phone: [facility] 02-11-1993 diphtheria, tetanus toxoids and pertussis vaccine Abimbola House MD Work Phone: [facility] 02-11-1993 haemophilus influenz ae type b vaccine, conjugate unspecified formulation Abimbola House MD Work Phone: [facility] 02-11-1993 trivalent poliovirus vaccine, live, oral Abimbola House MD Work Phone: [facility] 1992 diphtheria, tetanus toxoids and pertussis vaccine Abimbola House MD Work Phone: [facility] 1992 haemophilus influenz ae type b vaccine, conjugate unspecified formulation Abimbola House MD Work Phone: [facility] 1992 trivalent poliovirus vaccine, live, oral Abimbola House MD Work Phone: [facility] Payers Date Payer Category Payer Commercial Managed C [facility] - [facility] [employer] [id number] 2022 Unknown [id number] 2008 Self-pay 2008 Unknown 2000 Unknown [id number] 1992 Unknown [id number] 1992 Unknown [id number] Unknown [id number] Social History Date Type Detail Facility Start: 01-13-2023 End: 02-01-2025 Tobacco smoking status NHIS Never smoked tobacco [facility] Start: 01-13-2023 Tobacco use and exposure Smoke less tobacco non-user [facility] Start: 01-13-2023 End: 01-17-2024 Alcohol intake Current drinker of alcohol (finding) [facility] Start: 01-13-2023 End: 01-23-2025 History of Social function [facility] Start: 01-13-2023 End: 01-23-2025 Humiliation, Afraid, Rape, and Kick questionnaire [HARK] [facility] Within the last year , have you been afraid of your partner or ex-partner? Patient refused [facility] Are you now , , , , never or living with a partner? [facility] How often to you hav e a drink containing alcohol? Monthly or less [facility] How many standard dr inks containing alcohol do you have on a typical day? 1 or 2 [facility] How often do you hav e 6 or more drinks on 1 occasion? Never [facility] How hard is it for y ou to pay for the very basics like food, housing, medical care, and heating Not very hard [facility] Do you feel stress - tense, restless, nervous, or anxious, or unable to sleep at night because your mind is troubled all the time - these days [OSQ] Only a little [facility] (I/We) worried wheth er (my/our) food would run out before (I/we) got money to buy more. Never true [facility] In the past 12 month s, was there a time when you were not able to pay the mortgage or rent on time? No [facility] Start: 1990 Sex Assigned At Female S [facility] Start: 03-22-2022 Gender identity Identifies as female gender (finding) [facility] Start: 03-22-2022 Sexual orientation Heterosexual (fin ding) [facility] Do you belong to any clubs or organizations such as yazdanism groups, unions, fraternal or athletic groups, or school groups? Yes [facility] Do you feel stress - tense, restless, nervous, or anxious, or unable to sleep at night because your mind is troubled all the time - these days [OSQ] Not at all [facility] Start: 01-04-2022 Sex Female (finding) [facility] NEGATED: Highlighted rowStart: NINF History of tobacco use Passive smoker [facility] Functional Status Date Assessment Result Facility 01-23-2025 Patient Health Questionnaire 2 item (PHQ- 2) [Reported] [facility] Clinical Notes 01-13-2023 to 02-01-2025 Note Date & Type Note Facility 02-01-2025 Progress note [facility] 02-01-2025 Progress note Note Date/Time February 01, 2025 4:13pm [facility]'s [address], [address] [place] [address] OFFICE VISIT Date of Service: 02/01/25 MR#: [id number] Acct: [id number] Name: ARPITA ULLOA Rep #: [id number] : 1990 Provider: Dr. 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 Is patient in pain?: No Allergies amoxicillin (From Augmentin) Allergy (Mild, Verified 02/01/25 15:37) unknown clavulanic acid (From Augmentin) Allergy (Mild, Verified 02/01/25 15:37) unknown Medications ?Medication ?Instructions ?Recorded ?Confirmed ?Type valacyclovir 1 gram tablet 1,000 mg PO DAILY PRN 01/2902/01/25 History docosahexaenoic acid 200 mg mg PO 02/01/25 02/01/25 Hi story capsule ( DHA) pyridoxine (vitamin B6) 100 mg 100 mg PO QDAY 02/01/25 02/01/25 History tablet Post menopausal: No Patient : No : No [facility] Medical History Cold sore Surgical History S/P wisdom tooth extraction Family History Grandmother Diabetes Aunt No problems noted. Father No problems noted. Social History (Updated 02/01/25 @ 15:46 by Karne Frazier) Smoking Status: Never smoker alcohol intake: current details: occasionally substance use type: does not use caffeine: Yes what type of physical activity do you participate in: walking frequency: daily duration: 30-45 minutes/day seatbelt use: always do you feel safe at home: Yes additional social history: -Diego History 0 Elective abortions Hx Para Spontaneous abortions Hx # Term Pregnancies Ectopic pregnancies Hx # Pregnancies Multiple births # of living children HPI Encounter for routine gynecological examination Details: ARPITA ULLOA is a 34 year old who presents for annual exam. wants to start trying to conceive. is already taking PNV. Last PAP: 01/30/24 History of abnormal PAP:no Last mammogram: n/a History of abnormal mammogram:no Colon cancer screening: n/a Other preventative health care screenings: followed by pcp Female Reproductive History Cycle Length: 21-35 Bleeding Duration: 7 Questions: metrorrhagia: No, sexually active: Yes, dyspareunia: No and PCB: No Menopausal Symptoms: No hot flashes, No night sweats, No weight change, No mood changes, No difficulty concentrating, No sleep problems and No change in libido ROS Const Constitutional: Reports as per HPI; Denies fatigue, increased appetite, poor appetite, night sweats, weight gain or weight loss Cardio Card: Denies chest pain Resp Resp: Denies cough or dyspnea GI GI: Reports as per HPI; Denies abdominal pain, bloating, constipation, nausea or vomiting : Reports as per HPI and other; Denies difficulty voiding, dysuria, hematuria, hot flashes, nipple discharge, pelvic pain, prolapse symptoms, urinary frequency, urinary incontinence, urinaryurgency, vaginal discharge, vaginal dryness, vaginal odor or vaginal pruritus Skin Skin/Breast: Denies changing lesions, breast mass, breast pain, breast skin changes or nipple discharge Psych Psych: Denies anxiety, change in libido, depression or difficulty concentrating Exam Const General: cooperative, healthy appearing, comfortable, no acute distress, well developed and well groomed [facility] Head: normal to inspection and normocephalic Ears: hearing grossly normal bilaterally and external ears normal Nose: external nose normal Face and sinus: normal facial exam Neck Neck: normal visual inspection, full ROM and no lymphadenopathy Thyroid: thyroid normal Chest Chest palpation & inspection: normal inspection of the chest Breast inspection: normal inspection of the breasts and normal inspection of theaxillae Breast palpation: normal palpation of the breasts, normal palpation of the axillae and no axillary lymphadenopathy Resp Effort & Inspection: normal respiratory effort GI Inspection: normal to inspection and non-distended Palpation: soft, no hepatosplenomegaly and no guarding General: bladder normal to palpation External Female Exam: normal external appearance, normal appearance of the urethra and no lesions Urethra: normal appearance of the urethra and normal palpation Speculum Exam - Vagina: normal appearance of the vagina and normal vaginal discharge Speculum Exam - Cervix: normal appearance of the cervix, no cervical discharge, no lesions and nontender Bimanual Exam- Vagina & Uterus: normal bimanual exam, uterine size normal, bladder normal to palpation, No tender, uterine mobility normal, consistency normal, non-tender and no cervical motion tenderness Bimanual Exam- Adnexa, other: normal adnexae, no masses and non-tender Skin General: no rashes or lesions noted Neuro General: patient alert, moves all extremities and no focal motor deficits Extrem General: normal to inspection and no pedal edema Psych Appearance: grossly normal Mental Status: mental status grossly normal Affect: normal affect Speech and Movement: speech and movement normal Attitude: cooperative Coding Level of Care Code Off vis,est,prev 18-39yrs Diagnoses Encounter for routine gynecological examination Z01.419 Assessment and Plan Assessment and Plan (1) Encounter for routine gynecological examination: Plan: Cervical cancer screening: pap up to date Breast cancer screening: start age 40 STD prevention and contraceptive options including their risks, benefits, and alternatives were reviewed with the patient and she chooses: none, wants to havea baby soon! Encouraged maintenance of a healthy weight and active lifestyle and handout given. Calcium/vitamin D recommendations provided. Annual exam handout including recommendations for good health guidelines and basic screening information given. Problem list up to date, see problem list details for any additional plan information. follow up in one year for annual health maintenance exam or sooner if needed. 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 Continue valtrex Orders: valACYclovir (Valtrex) 1 g tablet; Take 1 tablet (1,000 mg) by mouth 2 times daily. [id number] History of Present illness Narrative* Hollie Priest DO - 01/23/2025 8:20 AM EDT Images from the original note were not included. [facility] [address] [facility] [id number] Visit Type: Physical PCP: Hollie Priest DO Reason for Visit: New Patient (New to provider) and Annual Exam (Physical) ASSESSMENT AND PLAN Assessment & Plan Annual physical exam Reviewed labs - cbc, cmp, lipid, A1c - wnl. Advised updating her Tdap in preparation for having a child. 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 Continue valtrex Orders: valACYclovir (Valtrex) 1 g tablet; Take 1 tablet (1,000 mg) by mouth 2 times daily. Follow up in about 1 year (around 01/23/2026) for Annual. There are no Patient Instructions on file for this visit. SUBJECTIVE HPI Arpita Ulloa presents for an annual exam. 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 Pap last year (2023). Trying to conceive. Review of Systems Pertinent ROS noted in the HPI and all other systems are negative. Allergies[1] Current Medications[2] Medical History[3] Social History[4] Surgical History[5] Family History[6] OBJECTIVE BP 113/70 (BP Location: Right arm, Patient Position: Sitting, BP Cuff Size: Adult) Pulse 91 Temp 36.7 C (98 F) (Temporal) Ht 5' 6.5 (1.689 m) Wt 130 lb (59 kg) LMP 01/20/2025 (Exact Date) Comment: Regular SpO2 100% BMI 20.67 kg/m Physical Exam Constitutional: General: She is not in acute distress. Appearance: Normal appearance. HENT: Head: Normocephalic and atraumatic. Right Ear: Tympanic membrane, ear canal and external ear normal. Left Ear: Tympanic membrane, ear canal and external ear normal. Mouth/Throat: Mouth: Mucous membranes are moist. Pharynx: Oropharynx is clear. No posterior oropharyngeal erythema. Eyes: General: No scleral icterus. Extraocular Movements: Extraocular movements intact. Conjunctiva/sclera: Conjunctivae normal. Pupils: Pupils are equal, round, and reactive to light. Neck: Thyroid: No thyroid mass or thyromegaly. Cardiovascular: Rate and Rhythm: Normal rate and regular rhythm. Heart sounds: No murmur heard. Pulmonary: Effort: Pulmonary effort is normal. No respiratory distress. Breath sounds: Normal breath sounds. No wheezing, rhonchi or rales. Abdominal: General: Abdomen is flat. Bowel sounds are normal. There is no distension. Palpations: Abdomen is soft. There is no hepatomegaly, splenomegaly or mass. Tenderness: There is no abdominal tenderness. There is no guarding. Musculoskeletal: Cervical back: Normal range of motion. No tenderness. Lymphadenopathy: Cervical: No cervical adenopathy. Neurological: Mental Status: She is alert. Psychiatric: Attention and Perception: Attention normal. Mood and Affect: Mood normal. Behavior: Behavior normal. Health Maintenance Health Maintenance Due Topic Date Due DTaP/Tdap/Td Vaccines (7 - Td or Tdap) 11/14/2019 COVID-19 Vaccine ( season) 2024 Immunization History Administered Date(s) Administered DTP 1992, 02/11/1993, 04/15/1993 DTaP, Unspecified 06/15/1994, 09/17/1997 HPV, Quadrivalent 01/23/2010, 04/14/2010, 03/12/2011 Hep A, ped/adol, 2 dose 11/13/2009, 06/02/2010 Hep B, Adolescent or Pediatric 11/27/1996, 02/26/1997, 09/17/1997 HiB, unspecified 1992, 02/11/1993, 04/15/1993, 06/15/1994 Influenza, seasonal, injectable 03/08/2014 MMR 06/15/1994, 09/17/1997 Meningococcal MCV4P 11/13/2009 Moderna SARS-CoV-2 Vaccination 08/27/2020, 09/24/2020, 06/16/2021 OPV 1992, 02/11/1993, 06/15/1994 Polio, Unspecified 09/17/1997 Tdap 11/13/2009 Varicella 09/17/1997, 11/13/2009 Medications Discontinued During This Encounter Medication Reason valACYclovir (Valtrex) 1 g tablet Reorder Hollie Priest DO 01/23/2025 8:59 AM There are no Patient Instructions on file for this visit. [1] Allergies Allergen Reactions Amoxicillin-Pot Clavulanate Diarrhea [2] Current Outpatient Medications: valACYclovir (Valtrex) 1 g tablet, Take 1 tablet (1,000 mg) by mouth 2 times daily., Disp: 180 tablet, Rfl: 3 [3] History reviewed. No pertinent past medical history. [4] Social History Socioeconomic History Marital status: Tobacco Use Smoking status: Never Passive exposure: Never Smokeless tobacco: Never Vaping Use Vaping status: Never Used Substance and Sexual Activity Alcohol use: Yes Drug use: Never Sexual activity: Yes Partners: Male control/protection: Condom Male Comment: Previously on A[employer] Control. Ended July 2022 Social Drivers of Health Financial Resource Strain: Low Risk (01/23/2025) Overall Financial Resource Strain (CARDIA) Difficulty of Paying Living Expenses: Not hard at all Food Insecurity: No Food Insecurity (01/23/2025) Hunger Vital Sign Worried About Running Out of Food in the Last Year: Never true Ran Out of Food in the Last Year: Never true Transportation Needs: No Transportation Needs (01/23/2025) PRAPARE - Transportation Lack of Transportation (Medical): No Lack of Transportation (Non-Medical): No Physical Activity: Sufficiently Active (01/23/2025) Exercise Vital Sign Days of Exercise per Week: 7 days Minutes of Exercise per Session: 50 min Stress: No Stress Concern Present (01/23/2025) [employer] - Occupational Stress Questionnaire Feeling of Stress : Not at all Social Connections: Socially Integrated (01/23/2025) Social Connection and Isolation Panel [NHANES] Frequency of Communication with Friends and Family: More than three times a week Frequency of Social Gatherings with Friends and Family: More than three times a week Attends Jainism Services: 1 to 4 times per year Active Member of Clubs or Organizations: Yes Attends Club or Organization Meetings: More than 4 times per year Marital Status: Intimate Partner Violence: Patient Declined (01/23/2025) Humiliation, Afraid, Rape, and Kick questionnaire Fear of Current or Ex-Partner: Patient declined Emotionally Abused: Patient declined Physically Abused: Patient declined Sexually Abused: Patient declined Housing Stability: Low Risk (01/23/2025) Housing Stability Vital Sign Unable to Pay for Housing in the Last Year: No Number of Times Moved in the Last Year: 0 Homeless in the Last Year: No [5] History reviewed. No pertinent surgical history. [6] Family History Problem Relation Name Age of Onset No Known Problems Paternal Grandmother Other ([id number]) Father August Curry Colon issues Asthma Father August Curry No Known Problems Maternal Grandmother No Known Problems Maternal Grandfather No Known Problems Brother Diabetes Mother Gladys Curry Arthritis Mother Gladys Curry No Known Problems Paternal Grandfather * Vera Hernandez LPN - 01/23/2025 8:20 AM EDT The patient, Arpita Ulloa is a 34 y.o. female identity was verified by name and date of . Injection of Tdap was administered per Nino Priest's Orders: Injection site: Left Deltoid The patient tolerated the injection well and without incident. The patient was discharged home with education. 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 Continue valtrex Orders: valACYclovir (Valtrex) 1 g tablet; Take 1 tablet (1,000 mg) by mouth 2 times daily. documented in this [facility]08-12-2025 Telephone encounter Note* Telephone Encounter - Dede Salgado MA - 01/15/2025 10:54 AM EDT Patient notified [id number] Miscellaneous Notes* Telephone Encounter - Dede Salgado MA - 01/15/2025 10:54 AM EDT Patient notified * Telephone Encounter - Hollie Priest DO - 01/15/2025 9:18 AM EDT Labs ordered. * Telephone Encounter - Paola Barksdale - 01/15/2025 7:54 AM EDT Name of caller: Arpita Contact phone number: [phone] Relationship to Patient: patient Provider: Zayda Practice: [facility] Chief Complaint/Reason for Call: Patient wants to know if you can order her blood work so she can have it done prior to her physical and it can be discussed at the visit? Please advise Best time of day caller can be reached: any Patient advised that office/PCP has 24-48 business hours to return their call: No documented in this encounterSKettering [facility] [id number] Telephone encounter Note* Telephone Encounter - Hollie Priest DO - 01/15/2025 9:18 AM EDT Labs ordered. [id number] Telephone encounter Note* Telephone Encounter - Paola Barksdale - 01/15/2025 7:54 AM EDT Name of caller: Arpita Contact phone number: [phone] Relationship to Patient: patient Provider: Zayda Practice: [facility] Chief Complaint/Reason for Call: Patient wants to know if you can order her blood work so she can have it done prior to her physical and it can be discussed at the visit? 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 female who presents for Annual Exam (Patient here today for annual physical exam. Needs refill on medication.). Gets the herpes lesions around the menses. Catching it early helps. Regular menses. On no hormones.BP is good. Chart reviewed. Review of Systems Constitutional: Negative for activity change and appetite change. Respiratory: Negative for chest tightness, shortness of breath and wheezing. Cardiovascular: Negative for chest pain and leg swelling. Gastrointestinal: Negative for abdominal pain, blood in stool, constipation and diarrhea. Genitourinary: Negative for difficulty urinating. Neurological: Negative for dizziness and headaches. Psychiatric/Behavioral: Negative for sleep disturbance. Objective Physical Exam Vitals and nursing note reviewed. Constitutional: General: She is not in acute distress. Appearance: She is not ill-appearing or toxic-appearing. HENT: Right Ear: Tympanic membrane normal. Left Ear: Tympanic membrane normal. Nose: Nose normal. Mouth/Throat: Pharynx: No oropharyngeal exudate or posterior oropharyngeal erythema. Eyes: General: No scleral icterus. Conjunctiva/sclera: Conjunctivae normal. Pupils: Pupils are equal, round, and reactive to light. Neck: Vascular: No carotid bruit. Cardiovascular: Rate and Rhythm: Normal rate and regular rhythm. Heart sounds: Normal heart sounds. No murmur heard. Pulmonary: Effort: Pulmonary effort is normal. No respiratory distress. Breath sounds: Normal breath sounds. Abdominal: General: Bowel sounds are normal. There is no distension. Tenderness: There is no abdominal tenderness. There is no right CVA tenderness or left CVA tenderness. Musculoskeletal: Cervical back: Neck supple. Lymphadenopathy: Cervical: No cervical adenopathy. Skin: General: Skin is warm and dry. Capillary Refill: Capillary refill takes less than 2 seconds. Coloration: Skin is not jaundiced. Neurological: Mental Status: She is alert and oriented to person, place, and time. Cranial Nerves: No cranial nerve deficit. Psychiatric: Thought Content: Thought content normal. 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 female who presents for Annual Exam (No questions or concerns. Pt not fasting. Pap due next year). MGM had DM. No CAD or stroke. No smoking. Not on the BCP. Uses condoms. Not concerned about labs. Needs a refill on the valtrex for outbreaks. Chart reviewed Review of Systems Constitutional: Negative for activity change and appetite change. Walks dog every night Respiratory: Negative for chest tightness and shortness of breath. Cardiovascular: Negative for chest pain and leg swelling. Genitourinary: Negative for difficulty urinating and dysuria. Objective Physical Exam Vitals and nursing note reviewed. Constitutional: General: She is not in acute distress. Appearance: She is not ill-appearing or toxic-appearing. HENT: Right Ear: Tympanic membrane normal. Left Ear: Tympanic membrane normal. Nose: Nose normal. Mouth/Throat: Pharynx: No oropharyngeal exudate or posterior oropharyngeal erythema. Eyes: General: No scleral icterus. Conjunctiva/sclera: Conjunctivae normal. Pupils: Pupils are equal, round, and reactive to light. Neck: Vascular: No carotid bruit. Cardiovascular: Rate and Rhythm: Normal rate and regular rhythm. Heart sounds: Normal heart sounds. No murmur heard. Pulmonary: Effort: Pulmonary effort is normal. No respiratory distress. Breath sounds: Normal breath sounds. Abdominal: General: Bowel sounds are normal. There is no distension. Tenderness: There is no abdominal tenderness. There is no right CVA tenderness or left CVA tenderness. Musculoskeletal: Cervical back: Neck supple. Lymphadenopathy: Cervical: No cervical adenopathy. Skin: General: Skin is warm and dry. Capillary Refill: Capillary refill takes less than 2 seconds. Coloration: Skin is not jaundiced. Neurological: Mental Status: She is alert and oriented to person, place, and time. Cranial Nerves: No cranial nerve deficit. Psychiatric: Thought Content: Thought content normal. Assessment/Plan Problem List Items Addressed This Visit Infectious/Inflammatory HSV-1 (herpes simplex virus 1) infection Relevant Medications valACYclovir (Valtrex) 1 g tablet Other Visit Diagnoses Routine adult health maintenance - Primary Healthy, stable [facility]* Diagnosis Routine adult health maintenance- Primary HSV-1 (herpes simplex virus 1) infection Herpes simplex without mention of complication [facility]* Diagnosis Routine adult health maintenance- Primary HSV-1 (herpes simplex virus 1) infection Herpes simplex without mention of complication [facility]* Diagnosis Routine adult health maintenance- Primary HSV-1 (herpes simplex virus 1) infection Herpes simplex without mention of complication Annual physical exam- Primary Routine general medical examination at a health care facility HSV-1 (herpes simplex virus 1) infection Herpes simplex without mention of complication [facility]* Diagnosis Routine adult health maintenance- Primary HSV-1 (herpes simplex virus 1) infection Herpes simplex without mention of complication Annual physical exam- Primary Routine general medical examination at a health care facility Hyperlipidemia, unspecified hyperlipidemia type Need for hepatitis C screening test Special screening examination for other specified viral diseases Encounter for screening for HIV Elevated fasting glucose Impaired fasting glucose Annual physical exam- Primary Routine general medical examination at a health care facility HSV-1 (herpes simplex virus 1) infection Herpes simplex without mention of complication documented in this encounter [facility]* Diagnosis Onset Date Resolution Status Admit Date Encounter for routine gynecological examination noneactive February 01, 2025 3:28pm [facility] Work Phone: Reason for referral (narrative)No reason for referral information availablePom[facility] Work Phone: Summary Purpose Family History No Family History Records Found Relationship Condition Age at Onset Recorded Date/T nancy grandmother Diabetes mellitus Unknown Advance Directives No Advanced Directives Records FoundNo Advanced Directives Records FoundNo Advanced Directives Records FoundNo Advanced Directives Records FoundNo Advanced Directives Records FoundNo Advanced Directives Records Found Chief Complaint and Reason for Visit Chief Complaint Admit Date 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 DATE CREATED AUTHOR AUTHOR'S ORGANIZ ATION 02/03/2025 [facility] (unrecognized sect ion and content) No Status Records FoundNo Status Records Found Reason for Visit (unrecogniz ed section and content) Reason Comments Annual Exam No questions or conc erns. Pt not fasting. Pap due next year Reason Comments Annual Exam Patient here today f or annual physical exam. Needs refill on medication. Reason Comments New Patient New to provider Annual Exam Physical Reason Onset Date Comments Labs Only 01/15/2025 Care Teams (unrecognized sec tion and content) Slp Relationship Specialty Start Date End Date Abimbola House MD [address] [place] [address], [address] [place], [place] [id number] PCP - General 08/26/20 Slp Relationship Specialty Start Date End Date Abimbola House MD [address] [place] [address] [place] [address] PCP - General 08/26/20 Slp Relationship Specialty Start Date End Date Hollie Priest DO [address] [place] [address] [place], [place] [id number] PCP - General Internal Medicine 01/23/25 Slp Relationship Specialty Start Date End Date Abimbola House MD [address] [place] [address] [place], [place] [id number] PCP - General 08/26/20 01/22/25 Hollie Priest DO [address] [place] [address] PCP - General Internal Medicine 01/23/25 Team Status: Active Member Role/Relationship Status Dates Dr. Abimbola House MD Primary Care Provider Active Team Status: Inactive Member Role/Relationship Status Dates Dr. Abimbola House MD Primary Care Provider Active Start: February 01, 2025 End: February 01, 2025 Dr. Abimbola House MD Referring Provider Active Start: February 01, 2025 End: February 01, 2025 Dr. Annalisa Muhammad DO Attending Provider Activ e Start: February 01, 2025 End: February 01, 2025 Goals (unrecognized section and content) Goals may be documented in a n alternate section FOR RECORDS PERTAINING TO PATIENTS WHO ARE OR HAVE BEEN ENROLLED IN A CHEMICAL DEPENDENCY/SUBSTANCEABUSE PROGRAM, SOME INFORMATION MAY BE OMITTED. This clinical summary was aggregated from multiple sources. Caution should be exercised in using it in the provision of clinical care. This summary normalizes information from multiple sources, and as a consequence, information in this document may materially change the coding, format and clinical context of patient data. In addition, data may be omitted in some cases. CLINICAL DECISIONS SHOULD BE BASED ON THE PRIMARY CLINICAL RECORDS. [facility] provides no warranty or guarantee of the accuracy or completeness of information in this document.
[2025-05-20 04:06] LABS: Chlamydia By Nucleic Acid AMP Negative (Negative); Gonococcus By Nucleic Acid AMP Negative (Negative)
== END | disposition home or self-care (01) ==
LOC: LABSPEC 12:02
PROVIDERS: PCP Family Medicine; Visit Provider Student in an Organized Health Care Education/Training Program
DX: Z34.90 Encounter for supervision of normal pregnancy, unspecified, unspecified trimester (principal)
CPT/HCPCS: 87086; 87491; 87591